=== PATIENT | male | born 1975 | race Two or more races ===

== ENCOUNTER → 2024-11-18 | Outpatient (CLI) | payer MEDICAID, SELFPAY ==
--- NOTE | 2024-11-18 08:38 | XR_ITS ---
Examination: PA lateral chest 2 views TECHNIQUE: Upright PA lateral chest 2 views Exam date and time: November 18, 2024 0858 hours Comparison 08/05/2021 INDICATIONS: Coughing one week. FINDINGS: Pneumonia lingular segment left upper lobe Normal heart size Prominent osteopenia IMPRESSION: Pneumonia lingular segment left upper lobe
== END | disposition home or self-care (01) ==
PROVIDERS: PCP Nurse Practitioner Family; Referring Provider Nurse Practitioner Family; Visit Provider Nurse Practitioner Family
DX: J18.9 Pneumonia, unspecified organism (principal)
CPT/HCPCS: 71046

== ENCOUNTER → 2025-08-22 | Outpatient (CLI) | payer MEDICARE, MEDICAID, SELFPAY ==
--- NOTE | 2025-08-22 | XR_ITS ---
EXAMINATION: PA lateral chest 2 views Date and time: August 22, 2025, 11:00 a.m. TECHNIQUE: Upright PA lateral chest 2 views FINDINGS: Normal heart size. Lungs are clear. Mild hyperexpansion The osseous rectors are intact IMPRESSION: No active disease
== END | disposition home or self-care (01) ==
PROVIDERS: PCP Family Medicine; Referring Provider Family Medicine; Visit Provider Family Medicine
DX: B38.9 Coccidioidomycosis, unspecified (principal)
CPT/HCPCS: 71046

== ENCOUNTER 2025-11-09 22:38 | Emergency (ER) | payer MEDICARE, MEDICAID, SELFPAY ==
[2025-11-09 22:39] VITALS: BMI 27.1
[2025-11-09 22:52] VITALS: BP 114/79; PULSE 130; RESP 18; TEMP 37.1; O2SAT 98
--- NOTE | 2025-11-09 23:01 | XR_ITS ---
EXAMINATION: AP chest single view TECHNIQUE: AP portable upright chest single view Date and time: November 09, 2025, 11:46 p.m. INDICATIONS: Fever congestion today. FINDINGS: Early bibasilar pneumonia. Normal heart size Osseous structures are intact IMPRESSION: Early bibasilar pneumonia
--- NOTE | 2025-11-09 23:01 | EKG_ITS ---
[facility] (Formerly [facility]) Test Date: 2025-11-09 Pat Name: EVERARDO GIPSON Department: Room: - Gender: Male [employer]: : 1975 Requested By: Brandon Birmingham Order Number: [id number] Reading MD: Brandon Birmingham Measurements Intervals [place] Rate: 136 P: 47 MA: 133 QRS: 75 QRSD: 96 T: 34 QT: 275 QTc: 415 Interpretive Statements SINUS TACHYCARDIA ABNORMAL RHYTHM ECG Compared to ECG 08/05/2021 15:14:24 No significant changes /store/S0/[id number].pdf
--- NOTE | 2025-11-09 23:01 | PD.EDRME ---
Rapid Medical Screening Exam E Arrival date/time: 11/09/25 22:38 50M with history of DM presents to ED with several days of cough, fevers/chills, and SOB. Patient's son was here yesterday and tested positive for the flu. Chief Complaint: Flu Like Symptoms Vital signs: Vital Signs Temperature 98.8 F 11/09/25 22:52 Pulse Rate 130 H 11/09/25 22:52 Respiratory Rate 18 11/09/25 22:52 Blood Pressure 114/79 11/09/25 22:52 Pulse Oximetry (%) 98 11/09/25 22:52 Oxygen Delivery Method Room Air 11/09/25 22:52 Exam: Somewhat short of breath, but clear lungs. HR quite fast. Clinical Impression: Influenza vs URI vs CAP vs PE vs cardiac dysrhythmia
[2025-11-09 23:27] LABS: Basophils # (Auto) 0.0 Thou/mm3 (0.0-0.2); Basophils % (Auto) 0 % (0-2.5); Eosinophils # (Auto) 0.1 Thou/mm3 (0.0-0.5); Eosinophils % (Auto) 1 % (0-10); Hematocrit 47.0 % (41.0-53.0); Hemoglobin 16.2 g/dL (13.5-16.0); Immature Granulocytes Auto 0.03 Thou/mm3 (0.00-0.00); Lymphocytes # (Auto) 0.5 Thou/mm3 (1.0-4.8); Lymphocytes % (Auto) 4 % (10-50); Mean Corpuscular HGB Conc 34.5 g/dl (31.0-37.0); Mean Corpuscular Hemoglobin 28.8 pg (25.0-35.0); Mean Corpuscular Volume 84 fL (80-100); Monocytes # (Auto) 0.9 Thou/mm3 (0.0-0.8); Monocytes % (Auto) 8 % (0-12); Neutrophils # (Auto) 9.8 Thou/mm3 (1.8-7.7); Neutrophils % (Auto) 87 % (37-80); Nucleated Red Blood Cell # 0.00 Thou/mm3 (0.00-0.00); Nucleated Red Blood Cell % 0 /100 WBC (0); Platelet Count 261 Thou/mm3 (140-440); RDW Standard Deviation 40.3 fL (35.1-43.9); Red Blood Count 5.62 Miln/mm3 (4.50-5.90); White Blood Count 11.3 Thou/mm3 (3.8-10.6)
[2025-11-09 23:32] VITALS: BP 137/89; PULSE 139; RESP 31; O2SAT 95
[2025-11-09 23:48] LABS: B-Type Natriuretic Peptide < 20 pg/mL (0-100)
[2025-11-09 23:50] LABS: Alanine Aminotransferase 36 U/L (10-49); Albumin, Serum 4.7 gm/dL (3.5-5.0); Albumin/Globulin Ratio 1.7 (1.2-2.2); Alkaline Phosphatase 112 U/L (46-116); Anion Gap 8 (7-16); Aspartate Amino Transferase 16 U/L (0-34); BUN/Creatinine Ratio 7 Ratio (12-20); Bilirubin,Total 0.9 mg/dL (0.3-1.2); Blood Urea Nitrogen 7 mg/dL (9-23); Calcium 9.5 mg/dL (8.3-10.6); Calcium (Corrected) 9.5 mg/dL (8.5-10.1); Carbon Dioxide 26.3 mMol/L (20.0-31.0); Chloride 102 mMol/L (98-107); Creatinine (Component) 1.0 mg/dL (0.6-1.3); Estimated Creatinine Clearance 99.2 mL/min (>60); Globulin 2.8 gm/dL (2.3-3.5); Glucose 192 mg/dL (74-106); Osmolality,Calculated 274 (275-295); Potassium 4.0 mMol/L (3.4-5.1); Sodium 136 mMol/L (136-145); Total Protein 7.5 gm/dL (5.7-8.2); Troponin I < 0.002 ng/mL (0.0-0.045); eGFR > 60 See Note
--- NOTE | 2025-11-09 23:51 | EDNOTE_ITS ---
ED General RME/HPI General Chief complaint: Flu Like Symptoms Stated complaint: FEVER CONGESTION SORE THROAT Time Seen by Provider: 11/09/25 23:07 Arrival date/time: 11/09/25 22:38 RME / HPI RME / HPI narrative: 11/09/25 22:38 50M with history of DM presents to ED with several days of cough, fevers/chills, and SOB. Patient's son was here yesterday and tested positive for the flu. HPI Patient with history of diabetes mellitus presents with classic flulike symptoms including sudden onset fevers/chills/generalized bodyaches/mild sore throat/scantly productive cough of approxi-12 to 18 hours. Patient had been in the emergency department with his son who tested positive for influenza A within the last 24 hours. This been no recent vomiting or diarrhea. No dysuria denies abdominal pain. Prior medical history includes diabetes mellitus hypertension and glaucoma. Prior surgical history is unremarkable. Allergies none social history patient denies alcohol illicit drug abuse. Does report occasional marijuana. Exam: Somewhat short of breath, but clear lungs. HR quite fast. Impression: Influenza vs URI vs CAP vs PE vs cardiac dysrhythmia Related Data Previous Rx's ?Medication ?Instructions ?Recorded albuterol sulfate 90 mcg/actuation 2 puff inhalation Q ID PRN 11/20/20 aerosol inhaler shortness of breath or wheez ing #18 grams azithromycin 250 mg tablet See Rx Instructions PO .COM PLEX #6 11/20/20 tabs hydrocodone 5 mg-acetaminophen 325 1 tab PO Q8H PRN pa in #20 tabs 11/10/25 mg tablet promethazine 12.5 mg tablet 12.5 mg PO TID PRN nausea and 11/10/25 vomiting/ abd cramping #14 tabs Allergies Allergy/AdvReac Type Severity Reaction Status Date / Time No Known Allergies Allergy Verified 11/09/25 22:42 ED Exam Narrative Physical exam: Pertinent findings on physical examination include alert nontoxic in appearance although notably tachycardic to 130s. HEENT examination demonstrates 2+ injected posterior pharynx with erythematous vesicles. No exudative lesions or tonsillar hypertrophy. Cardiac tachycardic without murmur Course Quality Measures none Orders Category Date Time Status Bedside Influenza A&B Antigen Test NOW Care 11/09/25 23:01 Completed EKG (ED ONLY) *Do not use* NOW Care 11/09/25 23:01 Completed EKG (ED Only) Stat Exams 11/09/25 23:01 Draft XR chest 1V portable Stat Exams 11/09/25 23:01 Completed B-Type Natriuretic Peptide Stat Lab 11/09/25 23:14 Completed CBC Stat Lab 11/09/25 23:14 Completed Comprehensive Metabolic Panel Stat Lab 11/09/25 23:14 Completed Drug Screen,Urine Stat Lab 11/09/25 23:38 Completed Troponin I Stat Lab 11/09/25 23:14 Completed Morphine* Inj Med 11/09/25 23:47 Discontinued 4 mg IVP X1 ONE Oseltamivir [Tamiflu] Med 11/09/25 23:46 Discontinued 75 mg PO X1 ONE Prochlorperazine Inj [Compazine Inj] Med 11/09/25 23:46 Discontinued 5 mg IV X1 ONE Sodium Chloride 0.9% 1000 ml [Ns] 1,000 ml Med 11/09/25 23:46 Discontinued IV 999 mls/hr Sodium Chloride 0.9% 1000 ml [Ns] 1,000 ml Med 11/10/25 00:26 Discontinued IV 999 mls/hr cefTRIAXone/D5w 1gm IV premix [Rocephin/D5w 1gm IV Med 11/10/25 00:39 Discontinued premix] 1 gm in 50 ml IV X1 Vital Signs Vital signs: Vital Signs Temperature 98.8 F 11/09/25 22:52 Pulse Rate 130 H 11/09/25 22:52 Respiratory Rate 18 11/09/25 22:52 Blood Pressure 114/79 11/09/25 22:52 Pulse Oximetry (%) 98 11/09/25 22:52 Oxygen Delivery Method Room Air 11/09/25 22:52 Discharge Plan Plan Patient Disposition: HOME (Self Care) Discharge Disposition comment: Stable Prescriptions/Referrals Prescriptions/Med Rec: New hydrocodone-acetaminophen 5-325 mg tablet 1 tab PO Q8H MDD 3 tab PRN (Reason: pain) Qty: 20 0RF promethazine 12.5 mg tablet 12.5 mg PO TID PRN (Reason: nausea and vomiting/ abd cramping ) Qty: 14 0RF No Action azithromycin 250 mg tablet See Rx Instructions .ROUTE .COMPLEX Qty: 6 0RF Rx Instructions: take 500 mg today (day 1), then 250 mg for 4 days (days 2-5) albuterol sulfate 90 mcg/actuation HFA aerosol inhaler 2 puff inhalation QID PRN (Reason: shortness of breath or wheezing) Qty: 18 0RF Referrals: Carrie Lr FNP [Primary Care Provider] - In 1 week Problem List Clinical Impression: Influenza A, UTI (urinary tract infection) Impression comment: Influenza A Patient/Caregiver Discharge Instructions Discharge Activity: activity as tolerated Diet Instructions: Force fluids Education Materials: Urinary Tract Infections in Men, ED Influenza (Adult) Additional Instructions: Force fluids/medication as directed/maintain quarantine for 5 days/antibiotics added for equivocal UTI. Follow-up with primary care/urologist within 7 to 10 days. Print Language: Romansh Stand Alone Forms: Rundown App Info., Patient Portal Info Letter MDM Narrative MDM hospital course (for use when minimal MDM required): Patient with history of diabetes mellitus presents with classic flulike symptoms including sudden onset fevers/chills/generalized bodyaches/mild sore throat/scantly productive cough of approxi-12 to 18 hours. Patient had been in the emergency department with his son who tested positive for influenza A within the last 24 hours. This been no recent vomiting or diarrhea. No dysuria denies abdominal pain. Please see PE findings. Laboratory markers demonstrate marginally elevated WBC count and left shift noted. Serum chemistries were essentially unremarkable. Glucose was mildly elevated and influenza A was positive. Patient is placed on monitoring specialist notably tachycardic aggressively hydrate gradual reduction in heart rate. Additionally received IV low-dose narcotic analgesia/antiemetics with mild to moderate relief. After extended period of observation considered stable for discharge. Will place on antiemetic, nonsteroidal anti-inflammatory agent and Tamiflu. Patient will be recommended to quarantine for 5 days and increase fluid hydration. Precautionary instructions issued Medication Administration(s) Medication Administration History Discontinued Medications Sodium Chloride (Ns) 1,000 mls @ 999 mls/hr IV .Q1H1M ONE Stop: 11/10/25 00:46 Last Infusion: 11/10/25 00:56 Dose: Infused Documented By: Admin: 11/09/25 23:54 Dose: 999 mls/hr Documented By: ELVI Sodium Chloride (Ns) 1,000 mls @ 999 mls/hr IV .Q1H1M ONE Stop: 11/10/25 01:26 Last Infusion: 11/10/25 01:33 Dose: Infused Documented By: Admin: 11/10/25 00:34 Dose: 999 mls/hr Documented By: ELVI Ceftriaxone Sodium/Dextrose (Rocephin/D5w 1gm Iv Premix) 1 gm in 50 mls @ 100 mls/hr IV X1 ONE Stop: 11/10/25 01:08 Last Infusion: 11/10/25 01:32 Dose: Infused Documented By: Admin: 11/10/25 00:47 Dose: 100 mls/hr Documented By: ELVI Morphine Sulfate (Morphine Sulf Inj 4 Mg/Ml Vial) 4 mg IVP X1 ONE Stop: 11/09/25 23:48 Last Admin: 11/09/25 23:55 Dose: 4 mg Documented By: ELVI Oseltamivir Phosphate (Oseltamivir 75 Mg Capsule) 75 mg PO X1 ONE Stop: 11/09/25 23:47 Last Admin: 11/09/25 23:54 Dose: 75 mg Documented By: ELVI Prochlorperazine Edisylate (Prochlorperazine Inj 5 Mg/Ml Vial 2 Ml) 5 mg IV X1 ONE; Protocol Stop: 11/09/25 23:47 Last Admin: 11/09/25 23:54 Dose: 5 mg Documented By: ELVI
[2025-11-09] MEDS: OSELTAMIVIR 75 MG CAPSULE PO (23:54)
[2025-11-09] MEDS: SODIUM CHLORIDE 0.9% 1000 ML 1,000 ML 999 ML IV (23:54)
[2025-11-09] MEDS: PROCHLORPERAZINE INJ 5 MG/ML VIAL 2 ML IV (23:54)
[2025-11-09] MEDS: MORPHINE SULF INJ 4 MG/ML VIAL IVP (23:55)
[2025-11-10] VITALS: BP 103/61; PULSE 73; RESP 18; TEMP 36.7; O2SAT 97
[2025-11-10 00:29] LABS: Amphetamine/Methamp Scrn,U Positive (Negative); Barbiturate Screen,Urine Negative (Negative); Benzodiazepines Screen,Urine Negative (Negative); Benzoylecgonine Screen, Ur Negative (Negative); Fentanyl Screen,Urine Negative (Negative); Opiate Screen,Urine Negative (Negative); THC Screen,Urine Positive (Negative)
[2025-11-10] MEDS: SODIUM CHLORIDE 0.9% 1000 ML 1,000 ML 999 ML IV (00:34)
[2025-11-10] MEDS: cefTRIAXone/D5w 1gm IV premix 1 GM/50 ML BAG IV (00:47)
[2025-11-10 01:34] VITALS: BP 128/80; PULSE 100; RESP 18; TEMP 37.2; O2SAT 98
== END 2025-11-10 01:35 | disposition home or self-care (01) ==
PROVIDERS: Physician Assistant; Emergency Provider Emergency Medicine; PCP Student in an Organized Health Care Education/Training Program
DX: N39.0 Urinary tract infection, site not specified (principal); J10.1 Influenza due to other identified influenza virus with other respiratory manifestations; E11.9 Type 2 diabetes mellitus without complications; I10 Essential (primary) hypertension
CPT/HCPCS: 36415; 71045; 80053; 80307; 83880; 84484; 85025; 87502; 93005; 96361; 96365; 96375; 99284; J0696; J0780; J2270; J7030; A9270